=== PATIENT | male | born 1995 | race Caucasian/White ===

== ENCOUNTER 2020-09-21 05:27 | Emergency (ER) | payer MEDICAID, SELFPAY ==
[2020-09-21 05:35] VITALS: BP 128/79; PULSE 119; RESP 16; TEMP 36.7; O2SAT 98; BMI 24.3
[2020-09-21] MEDS: Acetaminophen 325 MG TABLET 650 MG PO (05:44)
[2020-09-21] MEDS: Lidocaine 4 % Patch ADH..PATCH 1 PATCH TRANSDERMA (05:44)
--- NOTE | 2020-09-21 05:44 | ED.NECK ---
HPI - Neck Pain/Injury General Chief Complaint: Back Pain/Injury Stated Complaint: Shoulder/Neck pain Time Seen by Provider: 09/21/20 05:40 Source: patient Mode of arrival: ambulatory Limitations: no limitations History of Present Illness MD complaint: neck pain and upper back pain Onset (ago): day(s) (3) Place: home Radiation: left lateral and left shoulder Severity: moderate Quality: aching Duration: constant Relieving factors: none Exacerbating factors: movement of neck Context: lifting and turning/bending Associated symptoms: none Treatments prior to arrival: none Related Data Previous Rx's Medication Instructions Recorded cyclobenzaprine 10 mg PO TID PRN #14 tab 09/21/20 ibuprofen 600 mg PO Q6H PRN #30 tab 09/21/20 lidocaine 1 patch TOPICAL DAILY PRN #10 ea 09/21/20 Allergies Allergy/AdvReac Type Severity Reaction Status Date / Time No Known Allergies Allergy Unverified 07/17/20 16:35 [No Known Allergies*] Review of Systems Review of Systems: Constitutional : No Fever, No Chills ENT/Mouth : No Ear Pain, No Hoarseness, No sore throat Cardiovascular : No Chest Pain, No SOB Respiratory : No Cough, No Dyspnea Gastrointestinal : No Nausea, No Vomiting, No Diarrhea, No abdominal Pain Musculoskeletal : positive joint pain, No Myalgias, No Joint Swelling Skin : No Skin lacerations, No rash Neuro : No Weakness, No Numbness, No Loss of Consciousness, No Dizziness, No Headache PMFSH Past Medical History Attestation statement: The following information was validated with the patient. Medical History No active medical problems Social History Social History (Updated 09/21/20 @ 05:45 by Temi Pringle DO) Smoking Status: Current every day smoker Use of substances other than those prescribed or required for medical reasons: No Physical Exam Vital Signs: Vital Signs: Last Vital Signs Temp 98.1 F 09/21/20 05:35 Pulse 119 H 09/21/20 05:35 Resp 16 09/21/20 05:35 BP 128/79 09/21/20 05:35 Pulse Ox 98 09/21/20 05:35 Body Mass Index 24.3 Appearance: Alert. Oriented X3. No acute distress. Eyes: Pupils equal, round and reactive to light. ENT: Pharynx normal. Neck: no mass or swelling, no meningeal signs, ttp along L trapezius and rhomboids with spasm - distal NV intact CVS: Normal heart rate and rhythm. Pulses normal. Respiratory: No respiratory distress. Breath sounds normal. Abdomen: Soft and nontender. Skin: Skin warm and dry. Normal skin color. Normal skin turgor. Extremities: No lower extremity edema. No calf ttp Neuro: Oriented X 3. No motor deficit. No sensory deficit. MDM - Neck Pain/Injury MDM Narrative Medical decision making narrative: 24 yo male with L trapezius and rhomboid spasm and ttp at this time will need IM Toradol and lidocaine patch at this time suspect MSK pain. Afebrile and no meningeal symptoms. Discharge Plan Discharge Clinical Impression: Trapezius muscle spasm Patient Disposition: Home, Self-Care Instructions: Muscle Spasm (ED) Additional Instructions: return to ED for any worsening symptoms or concerns Prescriptions: New cyclobenzaprine 10 mg tablet 10 mg PO TID PRN (Reason: muscle spasm) Qty: 14 RF: 0 lidocaine 4 % adhesive patch,medicated 1 patch topical DAILY PRN (Reason: pain) Qty: 10 RF: 0 ibuprofen 600 mg tablet 600 mg PO Q6H PRN (Reason: pain) Qty: 30 RF: 0 Referrals: Physician,None [Primary Care Provider] - 2 days (PCP if not better) Stand Alone Forms: Work/School Release
[2020-09-21] MEDS: Ketorolac Tromethamine 60 MG/2 ML VIAL IM (05:45)
--- NOTE | 2020-09-21 05:59 | PC.NURSE ---
pt hr 90 prior to d/c, cleared with dr rodriguez
== END 2020-09-21 06:04 | disposition home or self-care (01) ==
LOC: HO.ED 06:01
PROVIDERS: Emergency Provider Emergency Medicine
DX: M62.838 Other muscle spasm (principal); M25.512 Pain in left shoulder; M54.2 Cervicalgia; F17.200 Nicotine dependence, unspecified, uncomplicated; Z71.6 Tobacco abuse counseling; Z79.899 Other long term (current) drug therapy
CPT/HCPCS: 96372; 99284; J1885

== ENCOUNTER 2020-09-29 15:48 | Emergency (ER) | payer OTHER, MEDICAID, SELFPAY ==
[2020-09-29 16:47] VITALS: BP 133/78; PULSE 112; RESP 16; TEMP 37.4; O2SAT 96; BMI 24.3
--- NOTE | 2020-09-29 16:47 | XR_ITS ---
EXAMINATION: XR SHOULDER, LEFT CLINICAL INFORMATION: Shoulder pain COMPARISON: None TECHNIQUE: AP external rotation, Grashey, scapular Y, and axillary views of the left shoulder. FINDINGS: The bones and soft tissues are normal. No fracture. Glenohumeral and acromioclavicular alignment is anatomic with normal joint space. No abnormal soft tissue calcifications. XR/XR shoulder LT min 2V IMPRESSION: Normal left shoulder.
--- NOTE | 2020-09-29 17:21 | ED_ITS ---
HPI - Back Pain/Injury General Chief Complaint: Back Pain/Injury Stated Complaint: back pain Time Seen by Provider: 09/29/20 16:47 Source: patient Mode of arrival: ambulatory Limitations: no limitations History of Present Illness HPI Narrative: Otherwise healthy 24-year-old male who denies significant past medical history presenting with complaint of left shoulder pain that has been intermittent and going on for past 6 weeks or so pain sort of wax and wanes will get improved/resolved and come back. 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 States he was evaluated for this given muscle relaxant ibuprofen got better and return to work and pain him again. MD elicited complaint: back pain Pertinent past history: prior back pain Onset (ago): day(s) Severity: mild Similar Symptoms Previously: Yes Quality: aching Radiation: none Exacerbating factors: movement Relieving factors: immobilization Context: turning/twisting Associated symptoms: denies other symptoms Work related injury: Yes Related Data Previous Rx's Medication Instructions Recorded cyclobenzaprine 10 mg PO TID PRN #14 tab 09/21/20 ibuprofen 600 mg PO Q6H PRN #30 tab 09/21/20 lidocaine 1 patch TOPICAL DAILY PRN #10 ea 09/21/20 ibuprofen 800 mg PO Q8H PRN #30 tab 09/29/20 Allergies Allergy/AdvReac Type Severity Reaction Status Date / Time No Known Allergies Allergy Unverified 07/17/20 16:35 [No Known Allergies*] Review of Systems Review of Systems: Constitutional: No Weight loss, No Fever, No Chills, No Night Sweats, No Fatigue, No Malaise ENT/Mouth: No Hearing loss, No Ear Pain, No Nasal Congestion, No Sinus Pain, No Hoarseness, No sore throat, No Rhinorrhea, No Swallowing Difficulty Eyes: No Eye Pain, No Swelling, No Redness, No Foreign Body, No Discharge, No Vision Changes Cardiovascular: No Chest Pain, No SOB, No Dyspnea on Exertion, No Orthopnea, No Edema, No Palpitations Respiratory: No Cough, No Sputum, No Wheezing, No Smoke Exposure, No Dyspnea Gastrointestinal: No Nausea, No Vomiting, No Diarrhea, No Constipation, No abdominal Pain, No Hematochezia, No Melena Genitourinary: No Dysuria, No Urinary Frequency, No Hematuria, No Urinary Incontinence, No Urgency, No Flank Pain, No Urinary Flow Changes, No Hesitancy Musculoskeletal: No joint pain, No Myalgias, No Joint Swelling Skin: No Skin Lesions, No rash Neuro: No Weakness, No Numbness, No Paresthesias, No Loss of Consciousness, No Dizziness, No Headache Heme/Lymph: No Bruising, No Bleeding,No Lymphadenopathy Endocrine: No Polyuria, No Polydipsia, No Temperature Intolerance [facility] Past Medical History Medical History (Updated 09/29/20 @ 17:26 by James Hughes NP) No active medical problems No known health problems Social History Social History (Updated 09/21/20 @ 05:45 by Temi Pringle DO) Alcohol intake: never Smoking Status: Current every day smoker Advance Directives: No Advance Directives Information Provided: Yes Physical Exam Vital Signs: Vital Signs: Last Vital Signs Temp 99.4 F 09/29/20 16:47 Pulse 112 H 09/29/20 16:47 Resp 16 09/29/20 16:47 BP 133/78 09/29/20 16:47 Pulse Ox 96 09/29/20 16:47 Body Mass Index 24.3 Reviewed Const: General: cooperative and healthy appearing; No acute distress or intoxicated appearing Nutritional Appearance: average body habitus Orientation/consciousness: patient oriented x3 Neck: Neck: Yes normal visual inspection and No tender Thyroid: Thyroid normal Chest: Chest palpation & inspection: normal inspection of the chest Resp: Effort & Inspection: normal respiratory effort Cardio: Jugular venous distension: no JVD GI: Inspection: Yes normal to inspection Percussion: Yes normal to percussion Auscultation: normal bowel sounds : General: Yes no CVA tenderness Back/Spine/Pelvis: Back: no CVA tenderness Skin: General skin exam: no rashes or lesions noted Neuro: General: patient oriented x3 Extrem: Other: Left shoulder full range of motion has some pain when he does behind the back above 90 degrees. No swelling over the joint or tender palpation. neurovascularly intact. Strength within normal limits. No radiation. Negative Spurling test. Lower back slight tender palpation over the paraspinous muscle of the left lower lumbar region. No midline to palpation. No step-off. Negative leg lift. General: Yes normal to inspection Course Course Course Narrative: Injury consistent with overuse type strain type injury. No GI symptoms. No acute joint. Will follow up with Orthopedics in the meantime trial course of NSAID and referral provided to Orthopedics as well as [facility]. Stable for discharge. Discharge Plan Discharge Clinical Impression: Strain of lumbar region, Shoulder arthralgia Patient Disposition: Home, Self-Care Instructions: Low Back Strain (ED), Shoulder Sprain (ED) Prescriptions: New ibuprofen 800 mg tablet 800 mg PO Q8H PRN (Reason: pain) Qty: 30 RF: 0 No Action cyclobenzaprine 10 mg tablet 10 mg PO TID PRN (Reason: muscle spasm) Qty: 14 RF: 0 lidocaine 4 % adhesive patch,medicated 1 patch topical DAILY PRN (Reason: pain) Qty: 10 RF: 0 ibuprofen 600 mg tablet 600 mg PO Q6H PRN (Reason: pain) Qty: 30 RF: 0 Referrals: Jeramie Lemons MD [Physician] - 1 week Stand Alone Forms: Work/School Release
== END 2020-09-29 17:53 | disposition home or self-care (01) ==
PROVIDERS: Emergency Provider Emergency Medicine Emergency Medical Services
DX: S46.912A Strain of unspecified muscle, fascia and tendon at shoulder and upper arm level, left arm, initial encounter (principal); S39.012A Strain of muscle, fascia and tendon of lower back, initial encounter; M25.512 Pain in left shoulder; F17.200 Nicotine dependence, unspecified, uncomplicated; X50.1XXA Overexertion from prolonged static or awkward postures, initial encounter; Y93.9 Activity, unspecified; Y92.9 Unspecified place or not applicable; Y99.9 Unspecified external cause status; Z79.899 Other long term (current) drug therapy; Z71.6 Tobacco abuse counseling
CPT/HCPCS: 73030; 99283

== ENCOUNTER 2020-10-01 16:03 | Outpatient (REF) | payer MEDICAID, SELFPAY | END 2020-10-01 16:04 | disposition home or self-care (01) | LOC: HO.LAB 16:03 | PROVIDERS: Visit Provider Internal Medicine | DX: Z20.828 Contact with and (suspected) exposure to other viral communicable diseases (principal) | CPT/HCPCS: C9803; U0003 ==

== ENCOUNTER 2020-12-15 07:33 | Outpatient (REF) | payer MEDICAID, SELFPAY | END 2020-12-15 07:34 | disposition home or self-care (01) | LOC: HO.LAB 07:33 | PROVIDERS: Visit Provider Internal Medicine | DX: Z20.822 Contact with and (suspected) exposure to COVID-19 (principal) | CPT/HCPCS: 36415; C9803; U0003; U0005 ==

== ENCOUNTER 2020-12-24 12:53 | Emergency (ER) | payer MEDICAID, SELFPAY ==
--- NOTE | ~2020-12-24 | XR_ITS ---
EXAMINATION: XR SHOULDER, RIGHT CLINICAL INFORMATION: Snowboarding fall COMPARISON: Left shoulder radiographs 09/29/2020 for comparison. TECHNIQUE: AP external rotation, Grashey, and scapular Y of the right shoulder. FINDINGS: There is elevation of the clavicle with respect to the acromion at the acromioclavicular joint consistent with an acromioclavicular joint separation. No fracture or dislocation seen. Visualized right lung and ribs are normal. Glenohumeral joint intact. XR/XR shoulder RT min 2V IMPRESSION: There is asymmetric elevation of the clavicle with respect to the acromion consistent with an acromioclavicular joint separation.
[2020-12-24 13:03] VITALS: BP 126/88; PULSE 97; RESP 18; TEMP 36.6; O2SAT 98; BMI 22.8
--- NOTE | 2020-12-24 13:30 | ED_ITS ---
HPI - Extremity Problem General Chief complaint: Extremity Injury, Upper Stated complaint: R SHOULDER INJ Time Seen by Provider: 12/24/20 13:30 Source: patient Mode of arrival: ambulatory Limitations: no limitations History of Present Illness HPI Narrative: While snowboarding patient tried to do a trick and landed on his shoulder Complaint: extremity pain Onset (ago): day(s) Pain Consistency: constant Location: right and other (shoulder) Quality: sharp Radiation: none Exacerbating factors: range of motion Associated symptoms: denies other symptoms Related Data Previous Rx's Medication Instructions Recorded cyclobenzaprine 10 mg PO TID PRN #14 tab 09/21/20 ibuprofen 600 mg PO Q6H PRN #30 tab 09/21/20 lidocaine 1 patch TOPICAL DAILY PRN #10 ea 09/21/20 ibuprofen 800 mg PO Q8H PRN #30 tab 09/29/20 naproxen [Naprosyn] 500 mg PO BID #20 tab 12/24/20 Allergies Allergy/AdvReac Type Severity Reaction Status Date / Time No Known Allergies Allergy Unverified 07/17/20 16:35 [No Known Allergies*] Review of Systems Constitutional: Constitutional: Reports no additional constitutional complaints Eyes: Eyes: Reports no additional eye complaints ENT: Denies dizziness Cardiovascular: Cardiovascular: Reports no additional cardiovascular complaints Respiratory: Respiratory: Reports as per HPI Gastrointestinal: Gastrointestinal: Reports no additional gastrointestinal complaints Musculoskeletal: Musculoskeletal: Reports no additional musculoskeletal complaints Integumentary/Breasts: Skin/Breast: Denies rash Neurologic: Reports system reviewed and no additional complaints, except as documented, Denies dizziness and Denies Sensory deficit (Neuro) Psychiatric: Psychiatric: Denies anxiety [facility] Past Medical History Medical History No active medical problems No known health problems Social History Social History Alcohol intake: never Smoking Status: Current every day smoker Smoked in Last 30 Days: Yes Use of substances other than those prescribed or required for medical reasons: Yes Substance Use Type: Marijuana Substance Use Frequency: Daily Advance Directives: Yes Advance Directives Information Provided: Yes Advance Directives on File: No Physical Exam Vital Signs: Vital Signs: Last Vital Signs Temp 98 F 12/24/20 13:03 Pulse 97 12/24/20 13:03 Resp 18 12/24/20 13:03 BP 126/88 12/24/20 13:03 Pulse Ox 98 12/24/20 13:03 Body Mass Index 22.8 Const: General: healthy appearing Nutritional Appearance: average body habitus Orientation/consciousness: oriented to person and patient oriented x3 Limitations: no limitations HENMT: Head: Yes normal to inspection Ears: external ears normal General nose exam: Normal external nose present Mouth: Normal oral and palatal mucosa present and oropharynx normal Throat: Yes posterior oropharynx normal Eyes: General: appearance normal, both eyes and all related structures Neck: Other: supple Neck: Yes normal visual inspection Chest: Chest palpation & inspection: normal inspection of the chest Resp: Auscultation: clear to auscultation bilaterally Cardio: Jugular venous distension: no JVD Rate: regular rate Rhythm: regular rhythm Heart sounds: S1 normal heart sound present and S2 normal heart sound present GI: Inspection: Yes normal to inspection Palpation (GI): Soft to palpation, nontender and No hepatosplenomegaly present Auscultation: normal bowel sounds : General: Yes no CVA tenderness Back/Spine/Pelvis: Back: no CVA tenderness Skin: General skin exam: no rashes or lesions noted Neuro: General: oriented to person and patient oriented x3 Cranial nerves: Yes CN's II-XII intact bilaterally Motor exam (neuro): 5/5 motor strength present throughout Sensory Exam: No Sensory deficit (Neuro) Extrem: Other: right deltoid slightly swollen but not tender. Point tenderness at AC joint Psych: Appearance: grossly normal Course Course Course Narrative: history and physical consistent with AC joint separation, xray confirms slight AC joint separation MDM - Extremity (Nontraumatic) MDM Narrative Medical decision making narrative: no fracture AC joint separation Imaging Data shoulder right: Radiologist's impression: slight AC joint separation Discharge Plan Discharge Clinical Impression: Acromioclavicular joint injury Qualifiers: Encounter type: initial encounter Laterality: right Qualified Code(s): S49.91XA - Unspecified injury of right shoulder and upper arm, initial encounter Patient Disposition: Home, Self-Care Instructions: Acromioclavicular Separation (ED) Additional Instructions: Ice 20 minutes on 20 minutes off for 3 days Prescriptions: New naproxen [Naprosyn] 500 mg tablet 500 mg PO BID Qty: 20 RF: 0 No Action cyclobenzaprine 10 mg tablet 10 mg PO TID PRN (Reason: muscle spasm) Qty: 14 RF: 0 lidocaine 4 % adhesive patch,medicated 1 patch topical DAILY PRN (Reason: pain) Qty: 10 RF: 0 ibuprofen 600 mg tablet 600 mg PO Q6H PRN (Reason: pain) Qty: 30 RF: 0 ibuprofen 800 mg tablet 800 mg PO Q8H PRN (Reason: pain) Qty: 30 RF: 0 Referrals: Physician,Unknown [Primary Care Provider] - 2 days
[2020-12-24] MEDS: Ibuprofen 800 MG TABLET PO (13:43)
== END 2020-12-24 15:11 | disposition home or self-care (01) ==
PROVIDERS: Emergency Provider Emergency Medicine
DX: S43.111A Subluxation of right acromioclavicular joint, initial encounter (principal); M79.601 Pain in right arm; Y93.23 Activity, snow (alpine) (downhill) skiing, snowboarding, sledding, tobogganing and snow tubing; Y92.828 Other wilderness area as the place of occurrence of the external cause; Y99.8 Other external cause status; F17.200 Nicotine dependence, unspecified, uncomplicated; Z71.6 Tobacco abuse counseling; F12.90 Cannabis use, unspecified, uncomplicated; X58.XXXA Exposure to other specified factors, initial encounter; Y93.9 Activity, unspecified; Y99.9 Unspecified external cause status; Z79.899 Other long term (current) drug therapy
CPT/HCPCS: 73030; 99283

== ENCOUNTER 2021-07-08 12:39 | Emergency (ER) | payer MEDICAID, SELFPAY ==
[2021-07-08 13:10] VITALS: BP 133/70; PULSE 82; RESP 16; TEMP 36.2; O2SAT 100; BMI 22.8
--- NOTE | 2021-07-08 13:25 | ED_ITS ---
HPI - Eye Problem General Chief complaint: Eye Problems Stated complaint: MARLEY Sandoval EYE WORK RELATED Time Seen by Provider: 07/08/21 13:13 Source: patient Mode of arrival: ambulatory Limitations: no limitations History of Present Illness HPI Narrative: Patient complaining of foreign body sensation to his left eye. He works installing solar panels. He states he was using a saw was all on some metal. About 5-10 minutes later felt a foreign body sensation. He did not feel anything hit him in the eye. His vision is intact. No deep globe pain. He washed it out at work. He felt like it was moving but now it seems to be just in the middle of his upper lid. No prior history of similar issues. No other complaints Discomfort is 10 Related Data Previous Rx's Medication Instructions Recorded cyclobenzaprine 10 mg tablet 10 mg PO TID PRN #14 tab 09/21/20 ibuprofen 600 mg tablet 600 mg PO Q6H PRN #30 tab 09/21/20 lidocaine 4 % topical patch 1 patch TOPICAL DAILY PRN #10 ea 09/21/20 ibuprofen 800 mg tablet 800 mg PO Q8H PRN #30 tab 09/29/20 naproxen 500 mg tablet (Naprosyn) 500 mg PO BID #20 tab 12/24/20 erythromycin 5 mg/gram (0.5 %) eye 1 appl OPHTHALMIC-LEFT Q6H #1 g 07/08/21 ointment Allergies Allergy/AdvReac Type Severity Reaction Status Date / Time No Known Allergies Allergy Unverified 07/17/20 16:35 [No Known Allergies*] Review of Systems Constitutional: Constitutional: Reports no additional constitutional complaints and Denies fever(s) Eyes: Eyes: Reports as per HPI, Denies blind spots, Denies blurry vision, Denies change in vision and Denies requires corrective lenses Cardiovascular: Cardiovascular: Denies dyspnea Respiratory: Respiratory: Denies dyspnea [facility] Past Medical History [facility] Narrative: Noncontributory Medical History (Updated 07/08/21 @ 13:49 by Mekhi Guzman MD) No active medical problems No known health problems Retina disorder, right Social History Social History Alcohol intake: never Substance Use Type: Marijuana Advance Directives: No Advance Directives Information Provided: No Physical Exam Vital Signs: Vital Signs: Last Vital Signs Temp 97.2 F 07/08/21 13:10 Pulse 82 07/08/21 13:10 Resp 16 07/08/21 13:10 BP 133/70 07/08/21 13:10 Pulse Ox 100 07/08/21 13:10 Body Mass Index 22.8 Const: General: cooperative, healthy appearing, comfortable, no acute distress and alert Orientation/consciousness: oriented to person, oriented to place, oriented to time and patient oriented x3 HENMT: Head: Yes normal to inspection Eyes: Other: Fluorescein exam reveals small abrasion at 6:00. in the lower cornea. No foreign body noted. Eyelids were inverted. No obvious abnormalities noted other than the small abrasion. Visual Garcia: normal visual garcia by confrontation Alignment and Position: alignment normal Periorbital: periorbital findings normal Eyelids: Yes eyelids normal Conjunctivae: conjunctival abnormal (Mild left conjunctival injection. No subconjunctival hemorrhage) and other Pupils: Equal, round and reactive pupils present EOM: EOMs intact bilaterally Direct Ophthalmoscopy: normal light reflex Neck: Neck: Yes normal visual inspection and Yes full ROM Resp: Effort & Inspection: normal respiratory effort, able to speak in complete sentences and normal respiratory pattern Skin: General skin exam: no rashes or lesions noted Neuro: General: oriented to person, oriented to place, oriented to time, patient oriented x3 and no focal motor deficits Cranial nerves: Yes Equal, round and reactive pupils present Course Course Course Narrative: Tetracaine and fluorescein ordered MDM - Eye Problem MDM Narrative Medical decision making narrative: A ocular foreign body No evidence of globe rupture Differential Diagnosis Differential diagnosis: Likely corneal abrasion Discharge Plan Discharge Clinical Impression: Corneal abrasion Patient Disposition: Home, Self-Care Instructions: Corneal Abrasion (ED) Prescriptions: New erythromycin 5 mg/gram (0.5 %) ointment 1 appl ophthalmic-Left Q6H Qty: 1 RF: 0 No Action naproxen [Naprosyn] 500 mg tablet 500 mg PO BID Qty: 20 RF: 0 cyclobenzaprine 10 mg tablet 10 mg PO TID PRN (Reason: muscle spasm) Qty: 14 RF: 0 lidocaine 4 % adhesive patch,medicated 1 patch topical DAILY PRN (Reason: pain) Qty: 10 RF: 0 ibuprofen 600 mg tablet 600 mg PO Q6H PRN (Reason: pain) Qty: 30 RF: 0 ibuprofen 800 mg tablet 800 mg PO Q8H PRN (Reason: pain) Qty: 30 RF: 0 Referrals: Jesus Newberry [Physician] - 2 days
[2021-07-08] MEDS: Fluorescein Sodium STRIP 1 STRIP EYE-LEFT (13:38)
[2021-07-08] MEDS: Tetracaine HCl/PF 0.5% Oph Sol 4 ML DROPS 2 DROP EYE-LEFT (13:38)
== END 2021-07-08 14:02 | disposition home or self-care (01) ==
PROVIDERS: Emergency Provider Emergency Medicine
DX: S05.02XA Injury of conjunctiva and corneal abrasion without foreign body, left eye, initial encounter (principal); X58.XXXA Exposure to other specified factors, initial encounter; Y93.9 Activity, unspecified; Y92.9 Unspecified place or not applicable; Y99.0 Civilian activity done for income or pay; Z79.899 Other long term (current) drug therapy
CPT/HCPCS: 99283

== ENCOUNTER 2021-12-28 16:15 | Emergency (ER) | payer MEDICAID, SELFPAY ==
--- NOTE | ~2021-12-28 | XR_ITS ---
EXAMINATION: XR ELBOW, RIGHT CLINICAL INFORMATION: Swelling. COMPARISON: None TECHNIQUE: AP, lateral, and oblique views of the right elbow. FINDINGS: The bones and soft tissues are normal. No fracture or joint effusion. Alignment is anatomic. Joint spaces are maintained. XR/XR elbow RT 2V IMPRESSION: Normal right elbow.
[2021-12-28 16:20] VITALS: BP 126/66; PULSE 70; RESP 18; TEMP 36.4; O2SAT 98; BMI 23.1
--- NOTE | 2021-12-28 17:10 | ED_ITS ---
HPI - Extremity Problem General Chief complaint: Extremity Injury, Upper Stated complaint: injury right elbow Time Seen by Provider: 12/28/21 17:07 Source: patient Mode of arrival: ambulatory Limitations: no limitations History of Present Illness HPI Narrative: Patient is a 26 year old male presenting to the emergency department today with right elbow pain. Patient states that he was participating in a sporting event 2 days ago and landed directly on his right elbow. Patient states that today, it has increased swelling. Patient denies any numbness or tingling. Patient denies hitting his head in the injury. Patient denies any dizziness, lightheadedness, abdominal pain, nausea, vomiting, fever, chills, blurry vision, double vision, loss of vision, chest pain, difficulty breathing, shortness of breath, back pain, night sweats, pain with urination, increased urinary frequency, increased urinary urgency, blood in his urine or stool, syncope or a near syncopal episode, bowel incontinence, bladder incontinence, bowel retention, bladder retention, or any other complaints at this time. MD Complaint: extremity pain Onset (ago): day(s) (2) Pain Consistency: constant Location: right and elbow Severity scale (1-10): 2 Quality: dull Radiation: none Relieving factors: nothing Exacerbating factors: nothing Associated symptoms: denies other symptoms Related Data Previous Rx's Medication Instructions Recorded cyclobenzaprine 10 mg tablet 10 mg PO TID PRN #14 tab 09/21/20 ibuprofen 600 mg tablet 600 mg PO Q6H PRN #30 tab 09/21/20 lidocaine 4 % topical patch 1 patch TOPICAL DAILY PRN #10 ea 09/21/20 ibuprofen 800 mg tablet 800 mg PO Q8H PRN #30 tab 09/29/20 naproxen 500 mg tablet (Naprosyn) 500 mg PO BID #20 tab 12/24/20 erythromycin 5 mg/gram (0.5 %) eye 1 appl OPHTHALMIC-LEFT Q6H #1 g 07/08/21 ointment Allergies Allergy/AdvReac Type Severity Reaction Status Date / Time No Known Allergies Allergy Unverified 07/17/20 16:35 [No Known Allergies*] Review of Systems Constitutional: Constitutional: Reports no additional constitutional complaints, Denies chills, Denies fever(s) and Denies night sweats Eyes: Eyes: Reports no additional eye complaints, Denies blurry vision, Denies change in vision, Denies diplopia, Denies eye discharge, Denies loss of vision and Denies eye pain ENT: Denies dizziness Cardiovascular: Cardiovascular: Reports no additional cardiovascular complaints, Denies chest pain, Denies lightheadedness, Denies Loss of Consciousness and Denies dyspnea Respiratory: Respiratory: Reports no additional respiratory complaints and Denies dyspnea Gastrointestinal: Gastrointestinal: Reports no additional gastrointestinal complaints, Denies abdominal pain, Denies melena, Denies hematochezia, Denies change in bowel habits and Denies change in stool character Genitourinary: Genitourinary: Reports no additional male genitourinary complaints, Denies hematuria, Denies oliguria, Denies difficulty urinating, Denies dysuria, Denies urinary frequency, Denies urinary hesitancy, Denies urinary incontinence and Denies urinary urgency Musculoskeletal: Musculoskeletal: Reports no additional musculoskeletal complaints, Denies numbness and Denies tingling Comments: right elbow pain and swelling Neurologic: Denies dizziness, Denies loss of vision, Denies numbness and Denies tingling Psychiatric: Psychiatric: Reports no additional psychiatric complaints Endocrine: Endocrine: Reports no additional endocrine complaints Hematologic/Lymphatic: Hematologic/Lymphatic: Reports no additional hematologic/lymphatic complaints Allergic/Immunologic: Allergic/Immunologic: Reports no additional allergic/immunologic complaints PMFSH Past Medical History Attestation statement: The following information was validated with the patient. Medical History No active medical problems No known health problems Retina disorder, right Social History Social History Alcohol intake: never Substance Use Type: Marijuana Physical Exam Vital Signs: Vital Signs: Last Vital Signs Temp 97.6 F 12/28/21 16:20 Pulse 70 12/28/21 16:20 Resp 18 12/28/21 16:20 BP 126/66 12/28/21 16:20 Pulse Ox 98 12/28/21 16:20 BMI result Body Mass Index 23.1 Const: General: cooperative, no acute distress, alert and awake Nutritional Appearance: well nourished Orientation/consciousness: patient oriented x3 Limitations: no limitations HENMT: Head: Yes normal to inspection and Yes atraumatic Ears: hearing grossly normal bilaterally and external ears normal General nose exam: Normal external nose present, no nasal discharge noted and no epistaxis Face and sinus: Yes normal facial exam, No abrasion and No laceration Mouth: Normal oral and palatal mucosa present, no drooling and no muffled voice Eyes: General: appearance normal, both eyes and all related structures Periorbital: periorbital findings normal Eyelids: Yes eyelids normal Conjunctivae: conjunctivae normal Pupils: Equal, round and reactive pupils present EOM: EOMs intact bilaterally Neck: Neck: Yes normal visual inspection, Yes full ROM and Yes no lymphadenopathy Chest: Chest palpation & inspection: normal inspection of the chest Resp: Effort & Inspection: normal respiratory effort and able to speak in complete sentences GI: Inspection: Yes normal to inspection Neuro: General: patient oriented x3 and moves all extremities Cranial nerves: Yes Equal, round and reactive pupils present Cognition (Neuro): normal cognition Motor exam (neuro): 5/5 motor strength present throughout Sensory Exam: Normal double simultaneous stimulation for sensation Coordination: [id number] test normal Extrem: Other: right elbow pain to palpation with minimal swelling, consistent with a bursitis, no redness or warmth General: Yes normal to inspection, Yes full ROM and Yes capillary refill normal Psych: Appearance: grossly normal Mental Status: mental status grossly normal Affect: normal affect Attitude: cooperative Thought process: Normal thought process present Thought content: Normal thought content present Insight: Good insight present (Psych) MDM - Extremity (Nontraumatic) MDM Narrative Medical decision making narrative: Patient is a 26 year old male presenting to the emergency department today with right elbow pain and right elbow swelling. Patient's physical exam showed pain to palpation to the right elbow as well as minimal right elbow swelling. There was no warmth or redness present. Patient's physical exam was consistent with right bursitis. Patient's right elbow x-ray showed no acute process. I explained my physical exam findings as well as all test results to the patient. I answered all questions asked by the patient. I stressed the importance of the patient taking his medication as prescribed. I stressed the importance of the patient following up with his primary care provider and an orthopedic provider. I str essed the importance of the patient returning to the emergency department immediately if his symptoms were to worsen or if he were to develop any numbness, tingling, dizziness, shortness of breath, difficulty breathing, chest pain, blurry vision, loss of vision, nausea, vomiting, abdominal pain, fever, chills, back pain, or any other complaints. Patient verbalized agreement and understanding with this treatment plan and discharge. Differential Diagnosis Differential diagnosis: Unlikely gout (burisitis, elbow fracture, elbow contusi on) Medical Records Attestation: I reviewed the patient's medical records. Imaging Data Right elbow x-ray: Attestation: I personally reviewed and interpreted this imaging study as follows: Radiologist's impression: EXAMINATION: XR ELBOW, RIGHT CLINICAL INFORMATION: Swelling.? COMPARISON: None? TECHNIQUE: AP, lateral, and oblique views of the right elbow. FINDINGS: The bones and soft tissues are normal. No fracture or joint effusion. Alignment is anatomic. Joint spaces are maintained.? XR/XR elbow RT 2V IMPRESSION: Normal right elbow. Dictated By: ANYI LAMB MD Signed By: Electronically signed by ANYI LAMB MD 12/28/21 0943 Discharge Plan Discharge Clinical Impression: Bursitis of elbow Patient Disposition: Home, Self-Care Instructions: Elbow Bursitis (ED) Additional Instructions: Call to schedule a follow up appointment with an Orthopedic provider. Follow up with your primary care provider. Return to the emergency department immediately if your symptoms worsen or if you develop any dizziness, shortness of breath, difficulty breathing, chest pain, blurry vision, loss of vision, nausea, vomiting, abdominal pain, fever, chills, back pain, or any other complaints. Prescriptions: No Action naproxen [Naprosyn] 500 mg tablet 500 mg PO BID Qty: 20 0RF erythromycin 5 mg/gram (0.5 %) ointment 1 appl ophthalmic-Left Q6H Qty: 1 0RF cyclobenzaprine 10 mg tablet 10 mg PO TID PRN (Reason: muscle spasm) Qty: 14 0RF lidocaine 4 % adhesive patch,medicated 1 patch topical DAILY PRN (Reason: pain) Qty: 10 0RF Rx Instructions: may leave on for up to 12 hrs ibuprofen 600 mg tablet 600 mg PO Q6H PRN (Reason: pain) Qty: 30 0RF ibuprofen 800 mg tablet 800 mg PO Q8H PRN (Reason: pain) Qty: 30 0RF Referrals: William Steele MD [Physician] - 2 days Print Language: Uzbek
== END 2021-12-28 18:12 | disposition home or self-care (01) ==
PROVIDERS: Emergency Provider Emergency Medicine
DX: M70.31 Other bursitis of elbow, right elbow (principal); Y93.79 Activity, other specified sports and athletics
CPT/HCPCS: 73070; 99283